=== PATIENT | male | born 1955 | race African-American/Black ===

== ENCOUNTER 2021-12-15 10:23 | Emergency (ER) | payer BC, OTHER ==
[~2021-12-15] VITALS: Ht 160 cm; Wt 64.0 kg
[2021-12-15 11:20] VITALS: BP 111/75
[2021-12-15] MEDS ORDERED: HYDROcodone-ACET 5/325MG TAB PO ONE (11:30)
== END 2021-12-15 12:31 | disposition home or self-care (01) ==
LOC: ER 10:23
DX: S42.351A Displaced comminuted fracture of shaft of humerus, right arm, initial encounter for closed fracture (principal); F17.210 Nicotine dependence, cigarettes, uncomplicated; F12.10 Cannabis abuse, uncomplicated; I10 Essential (primary) hypertension; E78.5 Hyperlipidemia, unspecified; W19.XXXA Unspecified fall, initial encounter; Y93.89 Activity, other specified; Y92.89 Other specified places as the place of occurrence of the external cause; Y99.8 Other external cause status
CPT/HCPCS: 73030; 73060